=== PATIENT | male | born 1950 | race Caucasian/White ===

== ENCOUNTER 2018-07-07 06:52 | Outpatient (CLI) | payer BC ==
--- NOTE | 2018-07-07 08:35 | ULT ---
SONOGRAM ABDOMEN COMPLETE: HISTORY: Upper abdomen pain. FINDINGS: The gallbladder has a normal appearance. The common duct is 0.3 cm. Liver unremarkable without foca l mass or intrahepatic biliary dilatation. No free fluid. The spleen, kidneys, and visualized porti ons of the abdominal aorta, IVC, and pancreas are unremarkable. IMPRESSION: No significant abnormalities are demonstrated. POS: [facility]
== END 2018-07-07 06:53 | disposition home or self-care (01) ==
LOC: SCSULT 06:52
PROVIDERS: ATTEND Family Medicine
DX: R10.11 Right upper quadrant pain (principal)
CPT/HCPCS: 76700

== ENCOUNTER 2018-12-19 16:58 | Outpatient (CLI) | payer MEDICARE, BC ==
--- NOTE | 2018-12-19 19:51 | RAD ---
LEFT FINGER THREE VIEW: History: Boutonniere deformity. Comparison: None. FINDINGS: There is soft tissue swelling along the dorsal aspect of the proximal interphalangeal joint over what is expected to be the middle finger. There is mild hyperextension of the distal interphalangeal join t. No acute fracture is appreciated. Subcortical cyst formation of the proximal phalanx head. IMPRESSION: 1. No acute fracture is appreciated. 2. Dorsal soft tissue swelling proximal interphalangeal joint. POS: [facility]
== END 2018-12-19 16:59 | disposition home or self-care (01) ==
LOC: SCSRAD 16:58
PROVIDERS: ATTEND Physician Assistant Medical
DX: M20.022 Boutonniere deformity of left finger(s) (principal); M79.89 Other specified soft tissue disorders

== ENCOUNTER 2019-01-15 15:57 | Emergency (ER) | payer MEDICARE, BC ==
--- NOTE | 2019-01-15 17:05 | RAD ---
Left ankle 3 views HISTORY: Left ankle injury. FINDINGS: Ankle mortise and talar dome are intact. Well-corticated malleolus may represent an old unu nited ossific avulsion. Mild joint space narrowing about the ankle. Fluid distention of the joint capsule anteriorly. Prominent degenerative changes throughout the hindfoot and midfoot. Dystrophic ca lcification over the Achilles tendon. No acute fracture, dislocation, or aggressive osseous erosions. Small bone island within the central distal tibia. IMPRESSION: Prominent degenerative changes. Joint fluid/effusion. No acute osseous abnormalities are demonstrated.
== END 2019-01-15 18:18 | disposition home or self-care (01) ==
LOC: SCSER 15:57
DX: S86.012A Strain of left Achilles tendon, initial encounter (principal); E11.9 Type 2 diabetes mellitus without complications; E78.5 Hyperlipidemia, unspecified; X50.9XXA Other and unspecified overexertion or strenuous movements or postures, initial encounter
CPT/HCPCS: 29515

== ENCOUNTER 2019-02-01 07:36 | Outpatient (CLI) | payer BC, MEDICARE ==
--- NOTE | 2019-02-01 09:28 | MRI ---
MRI LEFT HINDFOOT WITHOUT CONTRAST: INDICATIONS: Concern for Achilles tendinosis. FINDINGS: There is a full-thickness disruption of the Achilles tendon, from its attachment site, with retractio n of the tendon approximately 3.4 cm. There is severe tendinosis of the Achilles tendon. There is prominent edema within the subcutaneous tissues of the lower left foreleg, as well as the an kle. There is severe osteoarthrosis involving the tibiotalar joint and the posterior and mid subtalar qasim culation. There is a periarticular ganglion seen off the posterior aspect of the posterior subtalar articulation, measuring approximately 2.8 x 1.6 cm in greatest mediolateral and craniocaudad dimensio ns, respectively. The peroneal and medial flexor tendons are normal appearing. There is moderate tendinosis of the tib ialis anterior. The plantar fascia appears within normal limits. The sinus tarsi have normal signal and intensity. There is mild to moderate scattered midfoot osteoarthrosis. The syndesmotic ligamen ts appear intact. There is nonvisualization of normal appearing ATFL. There is a chronic, healed, p artial-thickness tears of the calcaneofibular and posterior talofibular ligament. There is a chronic , healed, partial-thickness tear of the deltoid ligament. IMPRESSION: 1. Complete Achilles tendon disruption with retraction of the tendon tear, 3.4 cm from the level of its attachment to the posterior calcaneus. There is severe tendinosis of the Achilles tendon. 2. 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 3. There is a large periarticular ganglion seen along the posterior aspect of the posterior subtalar articulation. 4. Healed chronic partial-thickness tears of the calcaneofibular, posterior talofibular, and deep de ltoid ligament. There is nonvisualization of the ATFL, likely related to chronic full thickness disr uption. The syndesmotic ligaments appear intact. 5. Moderate tendinosis of the tibialis anterior. POS: [facility]
== END 2019-02-01 07:37 | disposition home or self-care (01) ==
LOC: TBSIIMAG 07:36
DX: M76.60 Achilles tendinitis, unspecified leg (principal); M18.12 Unilateral primary osteoarthritis of first carpometacarpal joint, left hand; M67.462 Ganglion, left knee

== ENCOUNTER 2019-07-03 07:17 | Inpatient (IN) | payer BC, MEDICARE ==
[2019-07-03] MEDS ORDERED: Piperacillin/Tazobactam 4.5 GM VIAL ONE (07:43)
[2019-07-03] MEDS ORDERED: Sodium Chloride 0.9% 100 ML ONE (07:44)
[2019-07-03 07:48] LABS: Mean Corpuscular HGB CONC 32.9 g/dL (32.0-36.0); Mean Corpuscular Hemoglobin 28.9 pg (27.0-31.0); Mean Platelet Volume 9.6 fL (7.4-10.4); Platelet Count 132 thou/uL (130-400); RBC Distribution Width 14.9 % (11.5-14.5)
[2019-07-03 07:57] LABS: ALT (SGPT) 41 U/L (8-55); AST (SGOT) 55 U/L (5-34); Albumin 3.4 g/dL (3.4-4.8); Alkaline Phosphatase 66 U/L (40-110); Anion Gap 17 mmol/L (10-20); BUN (Urea Nitrogen) 17 mg/dL (8.4-25.7); Bilirubin, Total 0.6 mg/dL (0.2-1.2); Calc. Creatinine Clearance 0 mL/min (70-130); Calcium 9.1 mg/dL (7.8-10.44); Carbon Dioxide 23 mmol/L (23-31); Chloride 104 mmol/L (98-107); Estimated GFR-MDRD 66; Glucose 172 mg/dL (80-115); Potassium 3.6 mmol/L (3.5-5.1); Protein, Total 6.4 g/dL (5.8-8.1); Sodium 140 mmol/L (136-145)
[2019-07-03] MEDS ORDERED: HYDROcodone/Acetaminophen 5/325 mg Tablet PO PRN ×2 (08:00)
[2019-07-03 08:07] LABS: Band 18 % (5-11); Eosinophils 5 % (0-10); Lymphocytes 7 % (21-51); MDiff Complete? YES; Monocytes 5 % (0-10); Neutrophil 65 % (42-75); Platelet Morphology Comment Appears Adequate; RBC Morphology Normal
--- NOTE | 2019-07-03 08:07 | ULT ---
EXAM: Bilateral lower extremity venous duplex: Deep veins evaluated with color Doppler, spectral analysis, and compression. INDICATIONS: Bilateral lower extremity pain and edema. FINDINGS: Deep veins interrogated include common femoral vein, femoral vein, popliteal vein, and post erior tibial vein. These veins show normal compression and blood flow. No evidence of DVT. IMPRESSION: Negative Bilateral venous duplex exam. Incidental note of enlarged left inguinal region lymph nodes. Correlate clinically.
[2019-07-03] MEDS ORDERED: VANCOMYCIN IVPB PRN (09:00)
[2019-07-03 10:44] VITALS: BMI 38.2
[2019-07-03] MEDS: Clindamycin/D5W 900 MG in Premix Bag 1 BAG IVPB SCH ×2 (11:07→17:17)
[2019-07-03] MEDS ORDERED: Zolpidem Tartrate 5 MG TAB PO PRN (12:35)
[2019-07-03] MEDS ORDERED: diphenhydrAMINE 25 MG CAP PO PRN (12:35)
[2019-07-03] MEDS ORDERED: Ondansetron ODT 4 MG TAB PO PRN (12:35)
[2019-07-03] MEDS ORDERED: Ondansetron PF 4 MG/2 ML Vial IVP PRN (12:35)
[2019-07-03] MEDS ORDERED: HYDROcodone/Acetaminophen 10/325 mg Tablet PO PRN (12:37)
[2019-07-03] MEDS ORDERED: (Dulaglutide [Trulicity] 1.5 MG) SC SCH (12:45)
[2019-07-03] MEDS ORDERED: HumaLOG 300 UNITS/3 ML VIAL SC PRN (12:56)
[2019-07-03] MEDS ORDERED: Dextrose 50% Abboject 50 ML SYRINGE SLOW IVP PRN (12:56)
[2019-07-03] MEDS ORDERED: Dextrose 5% in Water 1,000 ML IV PRN (12:56)
[2019-07-03] MEDS: Piperacillin/Tazobactam 3.375 GM in Sodium Chloride 0.9% 100 ML IVPB SCH ×2 (13:48→20:18)
[2019-07-03] MEDS ORDERED: Piperacillin/Tazobactam 3.375 GM in Sodium Chloride 0.9% 100 ML IVPB SCH (14:00)
[2019-07-03] MEDS: Simvastatin 20 MG TAB PO SCH (20:16)
[2019-07-03] MEDS: Zolpidem Tartrate 5 MG TAB PO SCH (20:16)
--- NOTE | 2019-07-04 00:29 | HP ---
PRIMARY CARE PHYSICIAN: Emory Meeks MD HISTORY OF PRESENT ILLNESS: The patient underwent recent operation for left Achilles tendon repair with Dr. Oswaldo Gray in [place] with [facility] for orthopedic surgery, was recently traveling to [facility] and returned approximately or Wednesday. The patient was having some ill feelings that were improved with rest, hydration, however, subsequently had erythema showing up on left lower extremity on Wednesday, which progressed over Wednesday. The patient presented to the emergency department for evaluation today, found to have cellulitis extending from heel to knee. The patient has a longstanding history of gout, however, does not feel he is on a gout flare-up at this point in time and is compliant with his allopurinol. Did start colchicine over the weekend, thinking there might be some warmth and redness to the left ankle, only having serous discharge from incision line of left Achilles tendon repair. The patient is ambulatory and weightbearing. Emergency Department did perform an ultrasound that did not show any DVT. On review of past medical, social, surgical history, allergy to Levaquin. The patient with chronic gout, history of coronary artery disease, diabetes type 2 without complication, status post left Achilles tendon repair, status post gastric [place] [address] Gilliland, status post right knee replacement, left cataract surgery, has a prior CABG, prior right great toe surgery. The patient is currently nonsmoker. Lives with spouse. MEDICATIONS: Include: 1. Glimepiride 4 mg. 2. Recently completed a dose of Keflex on an outpatient basis. 3. Omeprazole 20 mg twice daily. 4. Simvastatin 20 mg every evening. 5. Plavix 75 mg daily. 6. Fosamax 40 mg daily. 7. Potassium chloride 20 mEq two tabs daily. 8. Trulicity 1.5 mg once weekly. 9. Colcrys 0.6 mg tablet daily. 10. Aspirin 325 mg daily. 11. Amitiza 24 mcg twice daily. 12. Gabapentin 300 mg t.i.d. 13. Amiloride-hydrochlorothiazide 5/50 mg daily. 14. Carvedilol 3.125 mg twice daily. 15. Baclofen 10 mg twice daily. 16. Viagra 100 mg p.r.n. sexual activity. 17. Amiodarone 200 mg twice daily. 18. Tramadol 50 mg q.6 hours p.r.n. pain. 19. Ambien 10 mg p.r.n. at bedtime sleep. 20. Allopurinol 300 mg daily. 21. Tamsulosin 0.4 mg daily . 22. Flonase nasal sprays p.r.n. nasal symptoms. PHYSICAL EXAMINATION: VITAL SIGNS: On arrival to floor, temperature of 98.0, pulse of 81, 99% on room air, respiratory rate of 18, blood pressure of 129/77. LABORATORY WORK: White blood cell count of 9.0, platelet count 132, hemoglobin of 13, blood glucose of 99-178 in the last 12 hours. Lactic acid of 1.9, ALT of 41, AST of 55, creatinine of 1.1, potassium of 3.6, sodium of 140. GENERAL: The patient is alert and oriented, in no acute distress. HEENT: Head is normocephalic and atraumatic. Extraocular movements are intact. Sclerae are white. Oral mucosa is moist. NECK: Supple. ABDOMEN: Soft, nontender. Positive bowel sounds throughout, protuberant. HEART: Regular rate and rhythm at the time of exam. No murmurs auscultated. LUNGS: Clear to auscultation bilaterally. No rubs or wheezes. EXTREMITIES: Lower extremities; left lower extremity with serous discharge from Achilles tendon surgery site. No pus or induration, however, erythema and pallor are throughout anterior-posterior circumferentially of left aguilar all the way up to left knee with trace pitting edema. Right lower extremity with signs of venous stasis dermatitis with hemosiderin deposits and induration with lack of hair to aguilar. The patient is alert and oriented x3. No focal deficits. Speech is normal. ASSESSMENT AND PLAN: Cellulitis of left lower extremity, admitted for IV antibiotics, recent left tendon repair. Spoke with the patient's orthopedic surgeon, verbalized understanding. The patient's current condition does not feel this is currently secondary to surgery but he did agree with covering for Pseudomonas, which patient is on Zosyn, clindamycin, vancomycin from emergency department. We will continue at this point in time. Vancomycin trough pending. We will continue patient's home Plavix, statin, beta tim regarding his coronary artery disease history, Lasix and potassium chloride regarding his lower extremity edema. The patient is on an ARB. We will continue the patient's medications for BPH, insomnia, and gout with home medications. Follow up blood work tomorrow. Hopefully, the patient will progress over the next three days, likely IV antibiotics and transitioned to orals. We will handoff to [facility] in the morning. Job ID: [id number]
[2019-07-04] MEDS: Clindamycin/D5W 900 MG in Premix Bag 1 BAG IVPB SCH ×3 (01:48→17:25)
[2019-07-04] MEDS: Piperacillin/Tazobactam 3.375 GM in Sodium Chloride 0.9% 100 ML IVPB SCH ×3 (03:00→14:27)
[2019-07-04 06:48] LABS: Anion Gap 12 mmol/L (10-20); BUN (Urea Nitrogen) 14 mg/dL (8.4-25.7); CRP (Inflammatory) 16.09 mg/dL (= or < 0.5); Calc. Creatinine Clearance 131 mL/min (70-130); Calcium 8.4 mg/dL (7.8-10.44); Carbon Dioxide 26 mmol/L (23-31); Chloride 104 mmol/L (98-107); Estimated GFR-MDRD 72; Glucose 91 mg/dL (80-115); Potassium 3.2 mmol/L (3.5-5.1); Sodium 139 mmol/L (136-145); Uric Acid 3.6 mg/dL (3.5-7.2)
[2019-07-04 07:26] LABS: #Eosinphils 0.4 thou/uL (0.0-0.7); #Lymphocytes 0.8 thou/uL (1.20-3.40); #Neutrophils 7.4 thou/uL (1.40-6.50); %Eosinophils 3.8 % (0.0-10.0); %Lymphocytes 8.4 % (21.0-51.0); %Monocytes 10.7 % (0.0-10.0); %Neutrophils 77.1 % (42.0-75.0); Hemoglobin 12.4 g/dL (14.0-18.0); Mean Corpuscular HGB CONC 32.7 g/dL (32.0-36.0); Mean Corpuscular Hemoglobin 29.1 pg (27.0-31.0); Mean Platelet Volume 9.2 fL (7.4-10.4); Platelet Count 112 thou/uL (130-400); Platelet Morphology Comment Appears Decreased; RBC Distribution Width 14.2 % (11.5-14.5); RBC Morphology Normal; Red Blood Cell (RBC) Count 4.27 mill/uL (4.70-6.10); White Blood Cell (WBC) Count 9.6 thou/uL (4.8-10.8)
[2019-07-04] MEDS: Allopurinol 300 MG TAB PO SCH (08:01)
[2019-07-04] MEDS: Losartan 25 MG TAB PO SCH (08:02)
[2019-07-04] MEDS: Clopidogrel Bisulfate 75 MG TAB PO SCH (08:02)
[2019-07-04] MEDS: Colchicine 0.6 MG TAB PO SCH (08:02)
[2019-07-04] MEDS: Furosemide 40 MG TAB PO SCH (08:04)
[2019-07-04] MEDS: Loratadine 10 MG TAB PO SCH (08:04)
[2019-07-04] MEDS: Tamsulosin HCl 0.4 MG CAP PO SCH (08:04)
[2019-07-04] MEDS: Potassium Chloride 20 MEQ TAB PO SCH (09:20)
--- NOTE | 2019-07-04 15:14 | PDOC.HOSPP ---
- Subjective Encounter Date: 07/04/19 Encounter Time: 10:30 Subjective: pt up in bed no complains, his right leg still has significant erythema. - Objective Vital Signs & Weight: Vital Signs (12 hours) Temp Pulse Resp BP BP Pulse Ox 07/04/19 12:00 98.1 F 84 18 120/75 97 07/04/19 08:00 98.6 F 97 20 124/72 97 07/04/19 04:00 98.4 F 88 18 118/79 98 Weight Weight 290 lb Result Diagrams: 07/04/19 06:14 07/04/19 06:14 Additional Labs: Accuchecks 07/04/19 07/03/19 07/03/19 04:49 20:07 16:01 POC Glucose 89 178 H 159 H Hospitalist ROS - Review of Systems Respiratory: denies: cough, dry, shortness of breath, hemoptysis, SOB with excertion, pleuritic pain, sputum, wheezing, other Cardiovascular: denies: chest pain, palpitations, orthopnea, paroxysmal noc. dyspnea, edema, light headedness, other - Medication Medications: Active Medications Generic Name Dose Route Start Last Admin Trade Name Freq PRN Reason Stop Dose Admin Hydrocodone Bitart/Acetaminophen 2 tab 07/03/19 12:37 07/03/19 17:20 [place] 10/325 PO 2 tab Q4H PRN Administration Pain Allopurinol 600 mg 07/04/19 09:00 07/04/19 08:01 Zyloprim PO 600 mg DAILY SENIA Administration Clopidogrel Bisulfate 75 mg 07/04/19 09:00 07/04/19 08:02 Plavix PO 75 mg DAILY SENIA Administration Colchicine 0.6 mg 07/04/19 09:00 07/04/19 08:02 Colchicine PO 0.6 mg QAM SENIA Administration Furosemide 40 mg 07/04/19 09:00 07/04/19 08:04 Lasix PO 40 mg DAILY SENIA Administration Clindamycin Phosphate/Dextrose 50 mls @ 100 mls/hr 07/03/19 10:00 07/04/19 11 :39 900 mg/ Device IVPB 50 mls 0200,1000,1800 SENIA Administration Vancomycin HCl 2 gm/ Sodium 500 mls @ 250 mls/hr 07/03/19 21:00 07/04/19 09: 18 Chloride IVPB 500 mls 0900,2100 SENIA Administration Piperacillin Sod/Tazobactam 100 mls @ 200 mls/hr 07/03/19 14:00 07/04/19 14: 27 Sod 3.375 gm/ Sodium Chloride IVPB 100 mls 0200,0800,1400,2000 SENIA Administration Loratadine 10 mg 07/04/19 09:00 07/04/19 08:04 Claritin PO 10 mg DAILY SENIA Administration Losartan Potassium 12.5 mg 07/04/19 09:00 07/04/19 08:02 Cozaar PO 12.5 mg DAILY SENIA Administration Pantoprazole Sodium 40 mg 07/03/19 21:00 07/04/19 08:04 Protonix PO 40 mg BID SENIA Administration Potassium Chloride 40 meq 07/04/19 09:00 07/04/19 09:20 K-Dur PO 40 meq DAILY SENIA Administration Simvastatin 20 mg 07/03/19 21:00 07/03/19 20:16 Zocor PO 20 mg QPM SENIA Administration Tamsulosin HCl 0.4 mg 07/04/19 09:00 07/04/19 08:04 Flomax PO 0.4 mg DAILY SENIA Administration Zolpidem Tartrate 10 mg 07/03/19 21:00 07/03/19 20:16 Ambien PO 10 mg HS SENIA Administration - Exam Neck: negative: supple, symmetric, no JVD, no thyromegaly, no lymphadenopathy, no carotid bruit, JVD Heart: negative: RRR, no murmur, no gallops, no rubs, normal peripheral pulses, irregular, diminshed peripheral pulses, murmur present, II/IV, III/IV Respiratory: negative: CTAB, no wheezes, no rales, no ronchi, normal chest expansion, no tachypnea, normal percussion, rales, rhonchi, tachypneic, wheezes Hosp A/P (1) Cellulitis Code(s): L03.90 - CELLULITIS, UNSPECIFIED Status: Acute (2) Diabetes Code(s): E11.9 - TYPE 2 DIABETES MELLITUS WITHOUT COMPLICATIONS Status: Acute (3) Gout Code(s): M10.9 - GOUT, UNSPECIFIED Status: Acute - Plan will continue current abx, ID consulted. will continue colchicine, and allopurinol.
[2019-07-04] MEDS: Acetaminophen 500 MG TAB PO PRN (16:39)
[2019-07-04] MEDS: cefTRIAXone\\ROCEPHIN 1 GM in Sodium Chloride 0.9% 100 ML IVPB SCH (18:32)
[2019-07-04] MEDS: Zolpidem Tartrate 5 MG TAB PO SCH (20:26)
[2019-07-04] MEDS: Simvastatin 20 MG TAB PO SCH (20:26)
[2019-07-04] MEDS: Baclofen 10 MG TAB PO PRN (20:28)
--- NOTE | 2019-07-05 00:27 | CON ---
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 He also has a history of type 2 diabetes, hyperlipidemia, gastric sleeve surgery, and coronary artery bypass graft surgery. He is status post a recent Achilles tendon repair on the left side and now he has developed cellulitis of the left lower extremity, superimposed on venous insufficiency. He denies headaches. No visual symptoms, sore throat, odynophagia, or dysphagia. No cough or sputum production. No chest pain. No abdominal pain. No diarrhea. No genitourinary symptoms. PAST MEDICAL HISTORY: Type 2 diabetes, hyperlipidemia, gastric sleeve surgery, Achilles repair, left side, prior episodes of cellulitis, right leg, coronary artery bypass graft surgery, right knee arthroscopy. 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 No smoking. No alcoholic beverage use. ALLERGIES: Levofloxacin, but not true allergy but what he describes as 'yeast' CURRENT MEDICATIONS: 1. Tylenol. 2. [place]. 3. Zyloprim. 4. Lioresal. 5. Clindamycin. 6. Colchicine. 7. Ondansetron. 8. Vancomycin. PHYSICAL EXAMINATION: VITAL SIGNS: T-max 98.6, blood pressure is normal, O2 saturation 97. GENERAL: Appears in no distress. SKIN: Left leg with circumferential erythema extending from the foot all the way to the knee. No lymphadenopathy. HEENT: Alopecia, male pattern. Oral cavity is normal. NECK: Supple. No jugular vein distention. LUNGS: Symmetric, clear breath sounds. HEART: S1 and S2, regular rate. No murmurs. ABDOMEN: Soft, not distended or tender. No ascites. No bladder distention. EXTREMITIES: The knees are okay. No tenderness. Normal range of motion. His infrapatellar area is normal. Pulses are good in dorsalis pedis. Capillary refill is normal. Moves all extremities equally with some limitations, left lower extremity. Evidence of stasis dermatitis with venous insufficiency noted. NEUROLOGIC: His cognitive function appears to be intact. LABORATORY DATA: White cell count is 9.6, hemoglobin 12.4, platelets 112, 77% neutrophils. Chemistry with GFR at 72. AST 55. Other liver functions are normal. Albumin 3.4. IMAGING DATA: Vascular ultrasound with no evidence of deep vein thrombosis. ASSESSMENT: Coronary artery disease, recent left Achilles tendon repair, venous insufficiency, prior episodes of cellulitis, right lower extremity and now left lower extremity cellulitis. DISCUSSION: The inflammatory process appears to be typical of a beta-hemolytic streptococcal cellulitis. He does not have concentration of inflammatory process in any upper segment of his leg which decreases the likelihood of staphylococcal abscess. We will transition the patient to IV Rocephin 1 g daily and then eventual transition to oral Keflex. He needs compressive stockings and I would give him a course of Penicillin-VK for 12 months 250 mg twice daily for secondary prophylaxis. Job ID: [id number] [facility]
[2019-07-05] MEDS: Losartan 25 MG TAB PO SCH (09:16)
[2019-07-05] MEDS: Colchicine 0.6 MG TAB PO SCH (09:17)
[2019-07-05] MEDS: Potassium Chloride 20 MEQ TAB PO SCH (09:18)
[2019-07-05] MEDS: Loratadine 10 MG TAB PO SCH (09:18)
[2019-07-05] MEDS: Saccharomyces boulardii 250 MG CAP PO SCH (09:18)
[2019-07-05] MEDS: Allopurinol 300 MG TAB PO SCH (09:18)
[2019-07-05] MEDS: Clopidogrel Bisulfate 75 MG TAB PO SCH (09:19)
[2019-07-05] MEDS: Furosemide 40 MG TAB PO SCH (09:19)
[2019-07-05] MEDS: Tamsulosin HCl 0.4 MG CAP PO SCH (09:19)
[2019-07-05 10:20] LABS: Anion Gap 12 mmol/L (10-20); BUN (Urea Nitrogen) 12 mg/dL (8.4-25.7); Calc. Creatinine Clearance 120 mL/min (70-130); Calcium 8.9 mg/dL (7.8-10.44); Carbon Dioxide 28 mmol/L (23-31); Chloride 100 mmol/L (98-107); Estimated GFR-MDRD 65; Glucose 235 mg/dL (80-115); Potassium 3.5 mmol/L (3.5-5.1); Sodium 136 mmol/L (136-145)
[2019-07-05] MEDS: Acetaminophen 500 MG TAB PO PRN (15:27)
--- NOTE | 2019-07-05 16:12 | PDOC.HOSPP ---
- Subjective Encounter Date: 07/05/19 Encounter Time: 11:30 Subjective: pt feels well today. He feels his left leg has improved - Objective Vital Signs & Weight: Vital Signs (12 hours) Temp Pulse Resp BP Pulse Ox 07/05/19 07:47 98.5 F 73 19 105/65 98 Weight Weight 290 lb Result Diagrams: 07/04/19 06:14 07/05/19 09:54 Additional Labs: Accuchecks 07/05/19 07/05/19 07/04/19 11:50 04:50 19:25 POC Glucose 149 H 62 L 230 H 07/04/19 07/04/19 16:53 10:51 POC Glucose 101 173 H Hospitalist ROS - Review of Systems Respiratory: denies: cough, dry, shortness of breath, hemoptysis, SOB with excertion, pleuritic pain, sputum, wheezing, other Cardiovascular: denies: chest pain, palpitations, orthopnea, paroxysmal noc. dyspnea, edema, light headedness, other Gastrointestinal: denies: nausea, vomiting, abdominal pain, diarrhea, constipation, melena, hematochezia, other - Medication Medications: Active Medications Generic Name Dose Route Start Last Admin Trade Name Freq PRN Reason Stop Dose Admin Acetaminophen 1,000 mg 07/03/19 12:35 07/05/19 15:27 Tylenol PO 1,000 mg Q4H PRN Administration Fever > 101 Hydrocodone Bitart/Acetaminophen 2 tab 07/03/19 12:37 07/03/19 17:20 [place] 10/325 PO 2 tab Q4H PRN Administration Pain Allopurinol 600 mg 07/04/19 09:00 07/05/19 09:18 Zyloprim PO 600 mg DAILY SENIA Administration Baclofen 10 mg 07/03/19 12:37 07/04/19 20:28 Lioresal PO 10 mg Q6H PRN Administration Muscle Pain Clopidogrel Bisulfate 75 mg 07/04/19 09:00 07/05/19 09:19 Plavix PO 75 mg DAILY SENIA Administration Colchicine 0.6 mg 07/04/19 09:00 07/05/19 09:17 Colchicine PO 0.6 mg QAM SENIA Administration Furosemide 40 mg 07/04/19 09:00 07/05/19 09:19 Lasix PO 40 mg DAILY SENIA Administration Ceftriaxone Sodium 1 gm/ 100 mls @ 200 mls/hr 07/04/19 18:00 07/04/19 18:32 Sodium Chloride IVPB 100 mls Q24HR SENIA Administration Loratadine 10 mg 07/04/19 09:00 07/05/19 09:18 Claritin PO 10 mg DAILY SENIA Administration Losartan Potassium 12.5 mg 07/04/19 09:00 07/05/19 09:16 Cozaar PO 12.5 mg DAILY SENIA Administration Pantoprazole Sodium 40 mg 07/03/19 21:00 07/05/19 09:17 Protonix PO 40 mg BID SENIA Administration Potassium Chloride 40 meq 07/04/19 09:00 07/05/19 09:18 K-Dur PO 40 meq DAILY SENIA Administration Saccharomyces Boulardii 250 mg 07/05/19 09:00 07/05/19 09:18 Florastor PO 250 mg DAILY SENIA Administration Simvastatin 20 mg 07/03/19 21:00 07/04/19 20:26 Zocor PO 20 mg QPM SENIA Administration Tamsulosin HCl 0.4 mg 07/04/19 09:00 07/05/19 09:19 Flomax PO 0.4 mg DAILY SENIA Administration Zolpidem Tartrate 10 mg 07/03/19 21:00 07/04/19 20:26 Ambien PO 10 mg HS SENIA Administration - Exam Heart: negative: RRR, no murmur, no gallops, no rubs, normal peripheral pulses, irregular, diminshed peripheral pulses, murmur present, II/IV, III/IV Respiratory: negative: CTAB, no wheezes, no rales, no ronchi, normal chest expansion, no tachypnea, normal percussion, rales, rhonchi, tachypneic, wheezes Gastrointestinal: negative: soft, non-tender, non-distended, normal bowel sounds , no palpable masses, no hepatomegaly, no splenomegaly, no bruit, no guarding, no rigidity, tender to palpation, distended, diminished bowl sounds, voluntary guarding Skin - other findings: left left ++ edema and mild erythema Hosp A/P (1) Cellulitis Code(s): L03.90 - CELLULITIS, UNSPECIFIED Status: Acute (2) Diabetes Code(s): E11.9 - TYPE 2 DIABETES MELLITUS WITHOUT COMPLICATIONS Status: Acute (3) Gout Code(s): M10.9 - GOUT, UNSPECIFIED Status: Acute - Plan will continue current abx, ID consulted. will continue colchicine, and allopurinol. 07/05 His erythema has improved. Appreciate ID's consultation. if pt's leg improve will discharge in am.
--- NOTE | 2019-07-05 16:34 | PRG ---
DATE OF SERVICE: 07/05/2019 SUBJECTIVE: Mr. Linares had improved this morning, but started walking and then his leg got swollen again. OBJECTIVE: VITAL SIGNS: His vital signs are normal. EXTREMITIES: Left leg about the same appearance as it had when I saw him yesterday. No respiratory symptoms. His lab data was not remarkable. Microbiology, no growth in blood cultures. ASSESSMENT AND DISCUSSION: Venous insufficiency and cellulitis, left leg. Continue Rocephin. He may have to stay at least until Wednesday depending on clinical progress. Job ID: [id number]
[2019-07-05] MEDS: cefTRIAXone\\ROCEPHIN 1 GM in Sodium Chloride 0.9% 100 ML IVPB SCH (17:54)
[2019-07-05] MEDS: Simvastatin 20 MG TAB PO SCH (20:00)
[2019-07-05] MEDS: Zolpidem Tartrate 5 MG TAB PO SCH (20:00)
[2019-07-05] MEDS: Baclofen 10 MG TAB PO PRN (20:00)
[2019-07-06] MEDS: Losartan 25 MG TAB PO SCH (08:38)
[2019-07-06] MEDS: Tamsulosin HCl 0.4 MG CAP PO SCH (08:38)
[2019-07-06] MEDS: Colchicine 0.6 MG TAB PO SCH (08:38)
[2019-07-06] MEDS: Furosemide 40 MG TAB PO SCH (08:40)
[2019-07-06] MEDS: Potassium Chloride 20 MEQ TAB PO SCH (08:40)
[2019-07-06] MEDS: Clopidogrel Bisulfate 75 MG TAB PO SCH (08:41)
[2019-07-06] MEDS: Saccharomyces boulardii 250 MG CAP PO SCH (08:41)
[2019-07-06] MEDS: Loratadine 10 MG TAB PO SCH (08:41)
[2019-07-06] MEDS: Allopurinol 300 MG TAB PO SCH (08:41)
[2019-07-06] MEDS: Acetaminophen 500 MG TAB PO PRN (14:51)
[2019-07-06] MEDS: cefTRIAXone\\ROCEPHIN 1 GM in Sodium Chloride 0.9% 100 ML IVPB SCH (17:56)
[2019-07-06] MEDS: Zolpidem Tartrate 5 MG TAB PO SCH (20:04)
[2019-07-06] MEDS: Simvastatin 20 MG TAB PO SCH (20:04)
[2019-07-06] MEDS: Baclofen 10 MG TAB PO PRN (20:04)
[2019-07-07 07:43] VITALS: BP 125/76; TEMP 97.4
[2019-07-07] MEDS: Saccharomyces boulardii 250 MG CAP PO SCH (09:08)
[2019-07-07] MEDS: Colchicine 0.6 MG TAB PO SCH (09:08)
[2019-07-07] MEDS: Tamsulosin HCl 0.4 MG CAP PO SCH (09:08)
[2019-07-07] MEDS: Potassium Chloride 20 MEQ TAB PO SCH (09:08)
[2019-07-07] MEDS: Loratadine 10 MG TAB PO SCH (09:08)
[2019-07-07] MEDS: Losartan 25 MG TAB PO SCH (09:09)
[2019-07-07] MEDS: Clopidogrel Bisulfate 75 MG TAB PO SCH (09:09)
[2019-07-07] MEDS: Furosemide 40 MG TAB PO SCH (09:09)
[2019-07-07] MEDS: Allopurinol 300 MG TAB PO SCH (09:09)
[2019-07-07 09:15] LABS: #Eosinphils 0.4 thou/uL (0.0-0.7); #Monocytes 0.5 thou/uL (0.11-0.59); #Neutrophils 5.5 thou/uL (1.40-6.50); %Basophils 0.3 % (0.0-1.0); %Eosinophils 4.9 % (0.0-10.0); %Lymphocytes 13.3 % (21.0-51.0); %Monocytes 6.1 % (0.0-10.0); %Neutrophils 75.4 % (42.0-75.0); Hemoglobin 12.5 g/dL (14.0-18.0); Mean Corpuscular HGB CONC 33.2 g/dL (32.0-36.0); Mean Corpuscular Hemoglobin 29.5 pg (27.0-31.0); Mean Corpuscular Volume 88.9 fL (78.0-98.0); Mean Platelet Volume 7.8 fL (7.4-10.4); Platelet Count 195 thou/uL (130-400); Red Blood Cell (RBC) Count 4.24 mill/uL (4.70-6.10); White Blood Cell (WBC) Count 7.3 thou/uL (4.8-10.8)
[2019-07-07 09:34] LABS: Anion Gap 11 mmol/L (10-20); BUN (Urea Nitrogen) 12 mg/dL (8.4-25.7); Calc. Creatinine Clearance 117 mL/min (70-130); Calcium 8.8 mg/dL (7.8-10.44); Carbon Dioxide 29 mmol/L (23-31); Chloride 99 mmol/L (98-107); Estimated GFR-MDRD 63; Glucose 209 mg/dL (80-115); Potassium 3.3 mmol/L (3.5-5.1); Sodium 136 mmol/L (136-145)
[2019-07-07] MEDS ORDERED: Cephalexin 250 MG CAP PO SCH (12:00)
--- NOTE | 2019-07-07 14:36 | PDOC.HOSPP ---
- Subjective Encounter Date: 07/06/19 Encounter Time: 11:30 Subjective: pt up in bed no complains - Objective Vital Signs & Weight: Vital Signs (12 hours) Temp Pulse Resp BP Pulse Ox 07/07/19 08:00 97 07/07/19 07:41 97.4 F L 71 16 125/76 97 Weight Weight 290 lb Result Diagrams: 07/07/19 08:54 07/07/19 08:54 Additional Labs: Accuchecks 07/07/19 07/07/19 07/06/19 11:29 04:10 19:43 POC Glucose 100 97 148 H 07/06/19 16:20 POC Glucose 167 H Hospitalist ROS - Review of Systems Respiratory: denies: cough, dry, shortness of breath, hemoptysis, SOB with excertion, pleuritic pain, sputum, wheezing, other Cardiovascular: denies: chest pain, palpitations, orthopnea, paroxysmal noc. dyspnea, edema, light headedness, other Gastrointestinal: denies: nausea, vomiting, abdominal pain, diarrhea, constipation, melena, hematochezia, other - Medication Medications: Active Medications Generic Name Dose Route Start Last Admin Trade Name Freq PRN Reason Stop Dose Admin Acetaminophen 1,000 mg 07/03/19 12:35 07/06/19 14:51 Tylenol PO 1,000 mg Q4H PRN Administration Fever > 101 Hydrocodone Bitart/Acetaminophen 2 tab 07/03/19 12:37 07/03/19 17:20 [place] 10/325 PO 2 tab Q4H PRN Administration Pain Allopurinol 600 mg 07/04/19 09:00 07/07/19 09:09 Zyloprim PO 600 mg DAILY SENIA Administration Baclofen 10 mg 07/03/19 12:37 07/06/19 20:04 Lioresal PO 10 mg Q6H PRN Administration Muscle Pain Clopidogrel Bisulfate 75 mg 07/04/19 09:00 07/07/19 09:09 Plavix PO 75 mg DAILY SENIA Administration Colchicine 0.6 mg 07/04/19 09:00 07/07/19 09:08 Colchicine PO 0.6 mg QAM SENIA Administration Furosemide 40 mg 07/04/19 09:00 07/07/19 09:09 Lasix PO 40 mg DAILY SENIA Administration Loratadine 10 mg 07/04/19 09:00 07/07/19 09:08 Claritin PO 10 mg DAILY SENIA Administration Losartan Potassium 12.5 mg 07/04/19 09:00 07/07/19 09:09 Cozaar PO 12.5 mg DAILY SENIA Administration Pantoprazole Sodium 40 mg 07/03/19 21:00 07/07/19 09:09 Protonix PO 40 mg BID SENIA Administration Potassium Chloride 40 meq 07/04/19 09:00 07/07/19 09:08 K-Dur PO 40 meq DAILY SENIA Administration Saccharomyces Boulardii 250 mg 07/05/19 09:00 07/07/19 09:08 Florastor PO 250 mg DAILY SENIA Administration Simvastatin 20 mg 07/03/19 21:00 07/06/19 20:04 Zocor PO 20 mg QPM SENIA Administration Tamsulosin HCl 0.4 mg 07/04/19 09:00 07/07/19 09:08 Flomax PO 0.4 mg DAILY SENIA Administration Zolpidem Tartrate 10 mg 07/03/19 21:00 07/06/19 20:04 Ambien PO 10 mg HS SENIA Administration - Exam Neck: negative: supple, symmetric, no JVD, no thyromegaly, no lymphadenopathy, no carotid bruit, JVD Heart: negative: RRR, no murmur, no gallops, no rubs, normal peripheral pulses, irregular, diminshed peripheral pulses, murmur present, II/IV, III/IV Respiratory: negative: CTAB, no wheezes, no rales, no ronchi, normal chest expansion, no tachypnea, normal percussion, rales, rhonchi, tachypneic, wheezes Hosp A/P (1) Cellulitis Code(s): L03.90 - CELLULITIS, UNSPECIFIED Status: Acute (2) Diabetes Code(s): E11.9 - TYPE 2 DIABETES MELLITUS WITHOUT COMPLICATIONS Status: Acute (3) Gout Code(s): M10.9 - GOUT, UNSPECIFIED Status: Acute - Plan will continue current abx, ID consulted. will continue colchicine, and allopurinol. 07/05 His erythema has improved. Appreciate ID's consultation. if pt's leg improve will discharge in am. 07/06 pt still has some erythema but improved since admission. he wants to stay one more day. will continue iv abx for now.
[2019-07-07] MEDS ORDERED: Potassium Chloride 20 MEQ TAB PO SCH (14:45)
--- NOTE | 2019-07-07 14:48 | PRG ---
DATE OF SERVICE: 07/07/2019 SUBJECTIVE: Still with moderate swelling of the left leg, but less pain. No respiratory symptoms. A little bit of loose stool, but no abdominal cramps. No genitourinary symptoms. OBJECTIVE: VITAL SIGNS: Normal. T-max 99.1. EXTREMITIES: The left leg is less swollen today and less erythematous. LUNGS: Not remarkable. HEART: Not remarkable. ABDOMEN: Not remarkable. LABORATORY DATA: White cell count 7.3, hemoglobin 12.5, platelets 195, and 75% neutrophils. ASSESSMENT AND DISCUSSION: Cellulitis, left lower extremity with improvement. Switch to oral Keflex. If continues to improve, consider discharging tomorrow, GABRIEL hose to the left lower extremity. Job ID: [id number]
[2019-07-07] MEDS: Acetaminophen 500 MG TAB PO PRN (15:01)
--- NOTE | 2019-07-08 01:57 | DIS ---
DATE OF ADMISSION: 07/03/2019 DATE OF DISCHARGE: 07/07/2019 DISCHARGE DIAGNOSES: As of the following; 1. Cellulitis. 2. Diabetes. 3. Hypertension. 4. Obesity. HOSPITAL COURSE: The patient is a 68-year-old male, who presented to the hospital with swelling of his left leg on 07/03. He did have vascular ultrasounds that were negative for DVT. He has had a history of gout in the past; however, he has been on colchicine and allopurinol. The patient recently had an Achilles tendon repair in the [facility] and after that, he had traveled to [facility]. The patient came after traveling to [facility] with complaints of swelling and erythema of his left leg. The patient's incision looked intact; however, he had significant amount of erythema and swelling. At this time, he was started on broad-spectrum antibiotics and admitted to the hospital. He was seen by Infectious Disease, who switched his antibiotics to ceftriaxone, which he tolerated well. ID's recommendation was to switch it to oral Keflex and also recommended compressive stocking and then continue a course for about 12 to 14 days. Also, the patient will require penicillin VK for 12 months, 250 mg twice a day for secondary prophylaxis. I have asked the patient to follow up with his primary care doctor. HOME MEDICATIONS: 1. Keflex 500 mg q.6 hours. 2. Florastor 250 daily. 3. Colchicine 0.6 q.a.m. 4. Baclofen 10 mg q.6 hours p.r.n. 5. daily. 6. Tamsulosin 0.4 mg daily. 7. Losartan 12.5 daily. 8. Plavix 75 mg daily. 9. Lasix 40 mg daily. 10. Trulicity 1.5 q.7 days. 11. Simvastatin 20 mg daily. 12. Tramadol 50 mg q.i.d. p.r.n. 13. Glimepiride 4 mg b.i.d. PHYSICAL EXAMINATION: VITAL SIGNS: Temperature 99.1, pulse 72, respirations 19, oxygen saturation 96%, and blood pressure 135/79. GENERAL: He is awake, alert, and oriented x3, does not appear in distress. CV: S1 and S2 present. No murmurs, rubs, or gallops. ABDOMEN: Soft, nontender. Bowel sounds are present x2. DISCHARGE INSTRUCTIONS: Again, the patient will be discharged home and he will follow up with primary and I have told him that if his symptoms worsen, he needs to come into the hospital. Job ID: [id number]
--- NOTE | 2019-07-10 22:57 | PQF ---
[employer] Intern Crystal Reports Winform ViewerKACIE LUCIANO KARISHMA [id number] [id number] CLINICAL DOCUMENTATION CLARIFICATION FORM: POST DISCHARGE Addendum to original discharge summary date: ____ Late entry note date: __ DATE: 07/11/2019 ATTN: DANAE VILLATORO Please exercise your independent, professional judgment in responding to the clarification form. Clinical indicators are provided on the bottom of this form for your review Please check appropriate box(s): [ ] Cellulitis Due to Diabetes [ ] Cellulitis not Due to Diabetes [ ] Other diagnosis [ ] Unable to determine In addition, please specify: Present on Admission (POA): [ ] Yes [ ] No [ ] Unable to determine For continuity of documentation, please document condition throughout progress notes and discharge summary. Thank You. CLINICAL INDICATORS - SIGNS / SYMPTOMS / LABS Erythema showing up on the LT lower extremity - Documented in H&P on 07/03 by Dhruv Abernathy MD Cellulitis extending from heel to knee - Documented in H&P on 07/03 by Dhruv Abernathy MD POC glucose level 172 on 07/03 , 235 on 07/05 and 209 on 07/07 - Documented in Laboratory Results RISKS: Hx of longstatnding Gout - Documented in H&P on 07/03 by Dhruv Abernathy MD DM type 2 - Documented in H&P on 07/03 by Dhruv Abernathy MD TREATMENT: Admitted IV antibiotics - Documented in H&P on 07/03 by Dhruv Abernathy MD Patient is on Zosyn clindamycin , Vancomycin - Documented in H&P on 07/03 by Dhruv Abernathy MD Consultation Ultrasoung jose [employer] Intern [employer] Winform Viewer(This form is maintained as a part of the permanent medical record) 2014 [employer]. All Rights Reserved [email or web address] [not provided] MTDD
== END 2019-07-07 16:37 | disposition home or self-care (01) | DRG 603 ==
LOC: SCSER 07:17 → T4-B 08:45
PROVIDERS: ADMIT Family Medicine; ATTEND Family Medicine
DX: L03.116 Cellulitis of left lower limb (principal); E11.9 Type 2 diabetes mellitus without complications; M10.9 Gout, unspecified; E78.5 Hyperlipidemia, unspecified; I25.10 Atherosclerotic heart disease of native coronary artery without angina pectoris; I87.2 Venous insufficiency (chronic) (peripheral); Z98.84 Bariatric surgery status; Z95.1 Presence of aortocoronary bypass graft; Z88.6 Allergy status to analgesic agent; Z79.02 Long term (current) use of antithrombotics/antiplatelets; Z79.82 Long term (current) use of aspirin; Z79.899 Other long term (current) drug therapy
CPT/HCPCS: 36415; 36416; 80048; 80053; 83605; 84550; 85025; 86140; 87040; 96365; 96367; J0696; J2543; J3370; J3490; J7050

== ENCOUNTER 2019-10-31 15:55 | Outpatient (CLI) | payer BC ==
--- NOTE | 2019-10-31 16:16 | RAD ---
LUMBAR SPINE: 10/31/19 Four views. HISTORY: Low back pain. Lumbar vertebra maintain normal height and alignment. The disc spaces are preserved. Prominent hypert rophic changes are seen with large anterior and lateral bridging osteophytes at all levels. Moderate facet hypertrophy. No evidence of spondylolisthesis. IMPRESSION: Moderate hypertrophic degenerative changes. POS: FREDO
== END 2019-10-31 15:56 | disposition home or self-care (01) ==
LOC: TBSIIMAG 15:55
PROVIDERS: ATTEND Neurological Surgery
DX: M54.5 Low back pain (principal); M47.816 Spondylosis without myelopathy or radiculopathy, lumbar region
CPT/HCPCS: 72110

== ENCOUNTER 2020-03-19 08:49 | Outpatient (CLI) | payer MEDICARE, BC ==
--- NOTE | 2020-03-19 09:52 | MRI ---
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 Vertebral body heights are maintained. There are flowing bridging ventral osteophytes protruding into the prevertebral space at all levels f rom T12-L1 through L4-5, consistent with DISH (diffuse idiopathic skeletal hyperostosis). Conus medullaris terminates at upper L2. Alignment is normal. Disc desiccation without high-grade dis c space narrowing at L4-5 and L5-S1. No high-grade disc space narrowing at any level. Normal bone marrow signal. The findings regarding the spinal canal and neural foramina are as follows: T12-L1:Small right paracentral focal disc protrusion indents the thecal sac. No central spinal canal stenosis or neural foraminal stenosis. L1-2:Essentially normal. L2-3:Essentially normal L3-4:Essentially normal L4-5:Mild to moderate bilateral facet DJD causes minimal 2 mm anterolisthesis of L4 on L5. No central or neural foraminal stenosis. Mild disc bulge. L5-S1:Diffuse disc bulge. Mild bilateral neural foraminal stenosis. No central spinal canal stenosis. Mild to moderate right lateral recess stenosis. Moderate right facet DJD. Mild to moderate left facet DJD. Superimposed small focal central disc herniation minimally indents ventral surface of thec al sac. IMPRESSION: 1) predominantly mild lumbar spondylosis, with low-grade degenerative disc disease and moderate facet osteoarthrosis at the lowest 2 levels. 2) no high-grade neural foraminal stenosis, central spinal canal stenosis, or gallo nerve root imping ement, at any level.
== END 2020-03-19 08:50 | disposition home or self-care (01) ==
LOC: TBSIIMAG 08:49
PROVIDERS: ATTEND Specialist
DX: M51.16 Intervertebral disc disorders with radiculopathy, lumbar region (principal); M47.26 Other spondylosis with radiculopathy, lumbar region
CPT/HCPCS: 72148

== ENCOUNTER 2022-07-13 07:42 | Outpatient (CLI) | payer MEDICARE, BC | END 2022-07-13 07:43 | disposition home or self-care (01) | LOC: TBSIIMAG 07:42 | PROVIDERS: ATTEND Nurse Practitioner Family | DX: M47.816 Spondylosis without myelopathy or radiculopathy, lumbar region (principal); M43.16 Spondylolisthesis, lumbar region | CPT/HCPCS: 72100; 72148 ==